=== PATIENT | female | born 1990 | race Caucasian/White ===

== ENCOUNTER 2016-11-22 16:48 | Emergency (ER) | payer SELFPAY ==
[2016-11-22] MEDS ORDERED: Lidocaine 4% Top Soln 4 ML LTA Syringe TOP ONE ×2 (18:14→18:20)
[2016-11-22] MEDS ORDERED: Lidocaine 4% Top Soln 50 ML Bottle TOP ONE ×2 (18:15)
--- NOTE | 2016-11-22 18:18 | EDM.PDOC ---
ED HPI GENERAL MEDICAL PROBLEM - General Chief Complaint: ENT Problem Stated Complaint: R EAR PAIN Time Seen by Provider: 11/22/16 18:08 Source of Information: Reports: Patient, Family, Old Records, RN Notes Reviewed History Limitations: Reports: No Limitations - History of Present Illness INITIAL COMMENTS - FREE TEXT/NARRATIVE: 26-year-old female presents emergency department today complaint of right ear pain states the pain has been going on for about 1 week or so has had fevers I was evaluated by her primary care provider yesterday started on amoxicillin as well as Ciprodex she has taken about 5 doses of amoxicillin but has not started the Ciprodex secondary to cost. 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: Neurological History: Reports: Other (See Below) Other Neuro History: "anxiety induced seizures" Psychiatric History: Reports: Anxiety - Past Surgical History GI Surgical History: Reports: Cholecystectomy Social & Family History - Tobacco Use Smoking Status *Q: Never Smoker - Caffeine Use Caffeine Use: Reports: Soda - Recreational Drug Use Recreational Drug Use: No ED ROS ENT - Review of Systems Review Of Systems: See Below Constitutional: Reports: Fever, Chills, Weakness HEENT: Reports: Ear Discharge, Ear Pain Respiratory: Reports: No Symptoms Cardiovascular: Reports: No Symptoms GI/Abdominal: Reports: No Symptoms : Reports: No Symptoms Musculoskeletal: Reports: No Symptoms Skin: Reports: No Symptoms Neurological: Reports: No Symptoms ED EXAM, ENT - Physical Exam Exam: See Below Text/Narrative:: Examination of the right ear the canal is edematous and erythematous I cannot appreciate the membrane secondary to edema, left tympanic membranes clear and robb Exam Limited By: No Limitations General Appearance: Alert, WD/WN, No Apparent Distress Mouth/Throat: Normal Inspection, Normal Gums, Normal Lips, Normal Oropharynx, Normal Teeth Head: Atraumatic, Normocephalic Neck: Normal Inspection, Supple, Full Range of Motion, Other (Tender to palpation along the anterior cervical chain bilaterally however I cannot palpate any nodes) Respiratory/Chest: No Respiratory Distress, Lungs Clear, Normal Breath Sounds, No Accessory Muscle Use Cardiovascular: Regular Rate, Rhythm, No Murmur Course - Vital Signs Last Recorded V/S: Last Vital Signs Temp 99.1 F 11/22/16 17:55 Pulse 98 11/22/16 17:55 Resp 16 11/22/16 17:55 BP 143/78 H 11/22/16 17:55 Pulse Ox 98 11/22/16 17:55 - Orders/Labs/Meds Labs: Laboratory Tests 11/22/16 11/22/16 11/22/16 Range/Units 18:23 18:23 18:23 WBC 9.4 (4.5-11.0) K/uL RBC 4.66 (3.30-5.50) M/uL Hgb 13.4 (12.0-15.0) g/dL Hct 40.4 (36.0-48.0) % MCV 87 (80-98) fL MCH 29 (27-31) pg MCHC 33 (32-36) % Plt Count 225 (150-400) K/uL Neut % (Auto) 71 H (36-66) % Lymph % (Auto) 19 L (24-44) % [place] % (Auto) 9 H (2-6) % Eos % (Auto) 2 (2-4) % Baso % (Auto) 0 (0-1) % Sodium 140 (140-148) mmol/L Potassium 3.9 (3.6-5.2) mmol/L Chloride 104 (100-108) mmol/L Carbon Dioxide 27 (21-32) mmol/L Anion Gap 9.0 (5.0-14.0) mmol/L BUN 10 (7-18) mg/dL Creatinine 0.8 (0.6-1.0) mg/dL Est Cr Clr Drug Dosing 89.70 mL/min Estimated GFR (MDRD) > 60 (>60) Glucose 87 (74-106) mg/dL Lactic Acid 1.3 (0.4-2.0) mmol/L Calcium 8.7 (8.5-10.1) mg/dL Total Bilirubin 0.4 (0.2-1.0) mg/dL AST 12 L (15-37) U/L ALT 21 (12-78) U/L Alkaline Phosphatase 113 (46-116) U/L Total Protein 7.7 (6.4-8.2) g/dL Albumin 3.9 (3.4-5.0) g/dL Globulin 3.8 H (2.3-3.5) g/dL Albumin/Globulin Ratio 1.0 L (1.2-2.2) Meds: Medications Discontinued Medications Generic Name Dose Route Start Last Admin Trade Name Regan PRN Reason Stop Dose Admin Ceftriaxone Sodium 1 gm/ 0 gm 11/22/16 19:09 11/22/16 19:48 Lidocaine HCl 2.1 ml IM 11/22/16 19:10 1 inj ONETIME ONE Administration Ketorolac Tromethamine 30 mg 11/22/16 19:02 11/22/16 19:51 Toradol IM 11/22/16 19:03 30 mg ONETIME ONE Administration Lidocaine 4 ml 11/22/16 18:14 Lta 360 Kit Top Soln TOP 11/22/16 18:15 ONETIME ONE Lidocaine 50 ml 11/22/16 18:20 11/22/16 18:25 Lta 360 Kit Top Soln TOP 11/22/16 18:21 2 ml ONETIME ONE Administration Lidocaine HCl Confirm 11/22/16 18:24 Xylocaine 4% Top Soln Administered 11/22/16 18:25 Dose 50 ml .ROUTE .STK-MED ONE Departure - Departure Time of Disposition: 20:55 Disposition: Home, Self-Care 01 Condition: Good Clinical Impression: Otitis externa Qualifiers: Otitis externa type: diffuse Chronicity: acute Laterality: right Qualified Code (s): H60.311 - Diffuse otitis externa, right ear - Discharge Information Referrals: PCP,None [Primary Care Provider] - Forms: ED Department Discharge Additional Instructions: Use ibuprofen for baseline pain control, use hydrocodone for breakthrough pain, Please followup with your primary care provider in 3-5 days if not better, please call return to the emergency department with worsening of symptoms. - Assessment/Plan Plan: Assessment Acuity = acute Site and laterality = right otitis externa Etiology = probable bacterial cause Manifestations = pain Location of injury = Home Lab values = CBC, CMP, lactic acid all within normal limits Plan She was provided 1 g Rocephin also lidocaine eardrops did not provide any relief 1 mg Dilaudid IM did provide significant relief she'll be discharged with hydrocodone 5/325 one tablet by mouth 3 times a day when necessary total # 10 she will follow-up with primary care in 3-5 days if no improvement Patient was in agreement with the plan all questions were answered, they were instructed to return to the emergency department or call for worsening symptoms. This note was dictated using Snippets voice recognition software please call with any questions.
[2016-11-22] MEDS ORDERED: Lidocaine 4% Top Soln 50 ML Bottle ONE (18:24)
[2016-11-22] MEDS ORDERED: Ketorolac 30 MG/ML SDV IM ONE (19:02)
[2016-11-22] MEDS ORDERED: cefTRIAXone 1 GM, Lidocaine 1% 2.1 ML IM ONE ×2 (19:09)
== END 2016-11-22 21:20 | disposition home or self-care (01) ==
LOC: JP.ED 16:48
DX: H60.311 Diffuse otitis externa, right ear (principal)
CPT/HCPCS: 36415; 80053; 83605; 85025; 96372; 99283; A9270; J0696; J1885

== ENCOUNTER 2019-06-27 23:00 | Emergency (ER) | payer SELFPAY ==
[2019-06-28] MEDS ORDERED: Ketorolac 60 MG/2 ML SDV IM ONE (00:21)
--- NOTE | 2019-06-28 00:28 | EDM.PDOC ---
ED HPI GENERAL MEDICAL PROBLEM - General Chief Complaint: ENT Problem Stated Complaint: JAW PAIN Time Seen by Provider: 06/28/19 00:05 Source of Information: Reports: Patient History Limitations: Reports: Physical Impairment (difficulty speaking due to limited range of motion of jaw) - History of Present Illness INITIAL COMMENTS - FREE TEXT/NARRATIVE: chief complaint: jaw pain This is a 28 year old female who lives in [place], here visiting relative this weekend. drove 6 hours to get here and now jaw is so painful unable to open. She reports two months ago had dental xray and procedure. Jaw has been painful and difficulty with open and closing. She has appointment next with Primary Care Provider for referral to Oral Surgeon. She is here for pain control. 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, Other Medication(s) (flexeril) Right Upper Jaw Pain Score (Numeric/FACES): 9 - Related Data Allergies Allergy/AdvReac Type Severity Reaction Status Date / Time No Known Allergies Allergy Verified 06/27/19 23:58 Home Meds: Home Meds Cyclobenzaprine [Flexeril] 10 mg PO DAILY 06/27/19 [History] Past Medical History HEENT History: Reports: Other (See Below) Other HEENT History: TMJ Gastrointestinal History: Reports: Cholelithiasis 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: Neurological History: Reports: Other (See Below) Other Neuro History: "anxiety induced seizures" Psychiatric History: Reports: Anxiety - Past Surgical History GI Surgical History: Reports: Cholecystectomy Social & Family History - Tobacco Use Smoking Status *Q: Never Smoker - Caffeine Use Caffeine Use: Reports: Soda - Recreational Drug Use Recreational Drug Use: No - Living Situation & Occupation 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, 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[place].) ED ROS ENT - Review of Systems Review Of Systems: See Below Constitutional: Reports: Other (bilateral jaw) HEENT: Reports: Dental Pain, Other (TMJ pain., jaw locked) Respiratory: Reports: No Symptoms Cardiovascular: Reports: No Symptoms Musculoskeletal: Reports: Joint Pain (bilateral jaw, TMJ joint bilateral), Joint Swelling (right TMJ), Muscle Pain (bilateral jaw), Muscle Stiffness ( bilateral jaw) Skin: Reports: No Symptoms Neurological: Reports: No Symptoms ED EXAM, ENT - Physical Exam Exam: See Below Exam Limited By: No Limitations General Appearance: Alert, WD/WN, Moderate Distress Ears: Normal External Exam Nose: Normal Inspection Mouth/Throat: Normal Teeth (upper and lower front teeth are white, clean and without caries), Other (unable to open mouth due to TMJ impairment. mild edema noted to the right TMJ. normal voice. ) Head: Atraumatic, Normocephalic, Facial Tenderness (bilateral TMJ) Neck: Normal Inspection, Supple, Non-Tender, Full Range of Motion Respiratory/Chest: No Respiratory Distress, Lungs Clear, Normal Breath Sounds, No Accessory Muscle Use, Chest Non-Tender Cardiovascular: Normal Peripheral Pulses, Regular Rate, Rhythm, No Edema, No Gallop, No JVD, No Murmur, No Rub Back: Normal Inspection, Full Range of Motion Neurological: Alert, Oriented, Normal Cognition Psychiatric: Normal Affect, Normal Mood Skin: Warm, Dry, Intact, Normal Color Lymphatic: No Adenopathy Course - Vital Signs Last Recorded V/S: Last Vital Signs Temp 36.4 C 06/27/19 23:56 Pulse 79 06/27/19 23:56 Resp 16 06/27/19 23:56 BP 137/87 06/27/19 23:56 Pulse Ox 97 06/27/19 23:56 - Orders/Labs/Meds Meds: Medications Discontinued Medications Generic Name Dose Route Start Last Admin Trade Name Regan PRN Reason Stop Dose Admin Ketorolac Tromethamine 60 mg 06/28/19 00:21 06/28/19 00:30 Toradol IM 06/28/19 00:22 60 mg ONETIME ONE Administration - Re-Assessments/Exams Free Text/Narrative Re-Assessment/Exam: 06/28/19 00:39 will give Toradol 60 mg IM, [facility] [place] #10 tabs, Prednisone taper dose #30 advised to follow up with Primary Care Provider as scheduled 07-03-2019 return to ER or Urgent Care if has any concerns or symptoms worse. Ms. Vick agrees with plan of care. Departure - Departure Time of Disposition: 00:23 Disposition: Home, Self-Care 01 Condition: Good Clinical Impression: TMJ (sprain of temporomandibular joint) Qualifiers: Encounter type: initial encounter Qualified Code(s): S03.40XA - Sprain of jaw, unspecified side, initial encounter - Discharge Information *PRESCRIPTION DRUG MONITORING PROGRAM REVIEWED*: Not Applicable *COPY OF PRESCRIPTION DRUG MONITORING REPORT IN PATIENT MARISEL: Not Applicable Referrals: PCP,None [Primary Care Provider] - Forms: ED Department Discharge Care Plan Goals: TMJ joint sprain -given Toradol 60 mg IM in ER] -[facility] [place] 5-325mg one every 4 to 6 hours as needed for pain #10 tablets -[facility] Prednisone tablet as directed #30 tablets -continue Motrin, Flexeril as directed -apply warm compress to area of pain for 20 minutes every 2 hours as needed -soft diet, avoid chewy foods -follow next week with Primary Care Provider on July 03, 2019 return to ER or Urgent Care if not improved or has any concerns. Sepsis Event Note - Evaluation Sepsis Screening Result: No Definite Risk - Focused Exam Vital Signs: Vital Signs Temp Pulse Resp BP Pulse Ox 06/27/19 23:56 36.4 C 79 16 137/87 97 06/27/19 23:52 36.4 C 79 16 137/87 97 Date Exam was Performed: 06/28/19 Time Exam was Performed: 00:34 - Problem List & Annotations (1) TMJ (sprain of temporomandibular joint) SNOMED Code(s): 81351309 Code(s): S03.40XA - SPRAIN OF JAW, UNSPECIFIED SIDE, INITIAL ENCOUNTER Status: Acute Priority: High Current Visit: Yes Qualifiers: Encounter type: initial encounter Qualified Code(s): S03.40XA - Sprain of jaw, unspecified side, initial encounter - Problem List Review Problem List Initiated/Reviewed/Updated: Yes - Assessment/Plan Plan: TMJ joint sprain -given Toradol 60 mg IM in ER] -[facility] [place] 5-325mg one every 4 to 6 hours as needed for pain #10 tablets -[facility] Prednisone tablet as directed #30 tablets -continue Motrin, Flexeril as directed -apply warm compress to area of pain for 20 minutes every 2 hours as needed -soft diet, avoid chewy foods -follow next week with Primary Care Provider on July 03, 2019 return to ER or Urgent Care if not improved or has any concerns.
== END 2019-06-28 00:44 | disposition home or self-care (01) ==
LOC: JP.ED 23:00
DX: S03.40XA Sprain of jaw, unspecified side, initial encounter (principal); X58.XXXA Exposure to other specified factors, initial encounter
CPT/HCPCS: 96372; 99283; J1885